=== PATIENT | female | born 1980 | race African-American/Black ===

== ENCOUNTER 2017-08-10 04:43 | Emergency (ER) | payer SELFPAY ==
--- NOTE | 2017-08-10 04:55 | PDOC ---
History of Present Illness - General Stated Complaint: LEFT ANKLE SWELLING History Source: Patient Exam Limitations: No Limitations - History of Present Illness Initial Comments: 08/10/17 04:59 37-year-old female with no medical history presents to the emergency department complaining of lateral ankle pain. Patient states she had a couple of alcoholic beverages today and cannot remember but her fianc says she misstepped and inverted her left ankle. Pain is described as 6/10 dull nonradiating intermittent discomfort. Pain is exacerbated on weight-bear and alleviated at rest. Patient denies any knee, foot, Achilles pain. Patient denies any other injuries/complaints. Occurred: reports: just prior to arrival Lower Extremity Pain Location: left: ankle Past History - Past Medical History Allergies/Adverse Reactions: Allergies Allergy/AdvReac Type Severity Reaction Status Date / Time No Known Drug Allergies Allergy Verified 08/10/17 04:58 ONIONS Allergy Rash Uncoded 08/10/17 04:58 HTN: Yes - Surgical History Abdominal Surgery: Yes - Immunization History Immunization Up to Date: Yes - Suicide/Smoking/Psychosocial Hx Smoking Status: Yes Smoking History: Current every day smoker Have you smoked in the past 12 months: Yes Number of Cigarettes Smoked Daily: 5 Hx Alcohol Use: Yes (4 x a week) Drug/Substance Use Hx: Yes Substance Use Type: Alcohol, Marijuana Review of Systems - Review of Systems Able to Perform ROS?: Yes Comments:: 08/10/17 04:56 All other ROS reviewed and are negative MUSCULOSKELETAL: Left lat ankle pain Absent: myalgia, arthralgia, joint swelling SKIN: Absent: rash, itching, pallor HEMATOLOGIC/IMMUNOLOGIC: Is the patient limited Kazakh proficient: No *Physical Exam - Physical Exam Comments: 08/10/17 04:57 GENERAL: Well developed, well nourished. Awake and alert. No acute distress. MUSCULOSKELETAL Normal range of motion at all joints. No bony deformities or tenderness. No CVA tenderness. EXTREMITIES: No cyanosis. No clubbing. No edema. No calf tenderness. SKIN: Warm and dry. Normal capillary refill. No rashes. No jaundice. Left ankle Decreased R.O.M./pain +swelling to lat malleolus 2+dp pulse neg obv def Left foot 2+pedal pulse neg obv def neg pain to base of 5th mt neg swelling Left knee F.R.O.M. neg pain on palp neg pain to prox fib neg obv def ED Treatment Course - RADIOLOGY Radiograph Interpretation: 08/10/17 04:57 Xray left ankle neg fx/dislocations *DC/Admit/Observation/Transfer Diagnosis at time of Disposition: Ankle sprain Qualifiers: Encounter type: initial encounter Involved ligament of ankle: other ligament Laterality: left Qualified Code(s): S93.492A - Sprain of other ligament of left ankle, initial encounter - Discharge Dispostion Disposition: HOME Condition at time of disposition: Stable Admit: No - Referrals Referrals: Prabhu Aly MD [Staff Physician] - - Patient Instructions Printed Discharge Instructions: DI for Ankle Sprain Additional Instructions: Ice; 20 mins on alternating with 20 mins off for 48 hours while awake. Rest Elevate Follow up with your orthopedic surgeon or the one listed on the discharge form. Return to the ER for severe/persistent/worsening symptoms, extremity numbness/ tingling sensation. - Post Discharge Activity Forms/Work/School Notes: Back to Work
[2017-08-10 05:22] VITALS: BP 95/68; PULSE 86; TEMP 98.5; BMI 24.5
[2017-08-10] MEDS ORDERED: ACETAMINOPHEN 325 MG TABLET (FP) ONE (06:02)
[2017-08-10] MEDS ORDERED: ACETAMINOPHEN 325 MG TABLET (FP) PO ONE (06:02)
== END 2017-08-10 06:07 | disposition home or self-care (01) ==
LOC: JER 04:43
DX: S93.492A Sprain of other ligament of left ankle, initial encounter (principal); X50.1XXA Overexertion from prolonged static or awkward postures, initial encounter; Y93.89 Activity, other specified; Y92.038 Other place in apartment as the place of occurrence of the external cause; I10 Essential (primary) hypertension; F17.210 Nicotine dependence, cigarettes, uncomplicated
CPT/HCPCS: 73610-TC-LT; 84703; 99281-25